=== PATIENT | female | born 1965 | race Caucasian/White ===

== ENCOUNTER → 2016-05-22 | Outpatient (CLI) | payer OTHER ==
[~2016-05-22] MED LIST: ABILIFY2 MG; ALLEGRA PO; KEFLEX PO; LEXAPRO; LOTREL 5/20 MG1 CAP; RHINOCORT AQUA8.6 GM; SINGULAIR
--- NOTE | ~2016-05-22 | CR151 ---
[facility]. [facility] A Service of [facility] & [facility] RADIOLOGY TEXT RESULTS PATIENT: TAYA LEONARD LOCATION: [facility] : 69 UNIT #: [id number] AGE: [address]: JULIETA ALVARENGA APRN SEX: F ORDER DR: [id number] [address] [id number] O MR#: [id number] Acc #: [id number] NAME: TAYA LEONARD : 1965 SEX: F STUDY DATE/TIME: 05/22/2016 9:44 UNIT: [facility] ROOM: STUDY DESCRIPTION: CR Hip Min 2 Views Rt Attending Physician: Julieta Alvarenga Aprn Referring Physician: Julieta Alvarenga Aprn Ordering Physician: Julieta Alvarenga Aprn Primary Care Physician: Julieta Alvarenga Aprn MEDICAL IMAGING REPORT This report is preliminary unless electronic signature is present. EXAM Right hip, 2 views. INDICATION 50-year-old female with right hip pain, tingling and numbness for 1 month. No injury. COMPARISON STUDIES No comparisons. FINDINGS Joint spaces are preserved. There is no fracture or dislocation. IMPRESSION Negative. Dictated by... Son Triana M.D. THIS IS AN ELECTRONICALLY VERIFIED REPORT Son Triana M.D. at 05/22/2016 4:39 PM KRISHNA/jairo TD: 05/22/2016 10:55 JOB #: [id number] MEDICAL IMAGING REPORT
== END | disposition home or self-care (01) ==
LOC: SRAD 09:35
DX: M25.551 Pain in right hip (principal)
CPT/HCPCS: 73502